=== PATIENT | female | born 2005 | race African-American/Black ===

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

== ENCOUNTER 2023-03-30 18:18 | Emergency (ER) | payer MEDICAID, OTHER ==
[~2023-03-30] VITALS: Ht 175.3 cm; Wt 68.0 kg
[2023-03-30 18:26] VITALS: O2SAT 98
[2023-03-30] MEDS ORDERED: KETOROLAC 60MG/2ML VIAL IM ONE (19:30)
[2023-03-30] MEDS ORDERED: NAPR-1176 MT (20:31)
[2023-03-30] MEDS ORDERED: KETOROLAC 60MG/2ML VIAL IM NR (21:00)
[2023-03-30 21:31] VITALS: BP 113/67
[2023-03-30 21:37] VITALS: PULSE 95; RESP 20; TEMP 98.3
== END 2023-03-30 21:38 | disposition home or self-care (01) ==
LOC: ER 18:18
DX: S99.921A Unspecified injury of right foot, initial encounter (principal); X58.XXXA Exposure to other specified factors, initial encounter; Y03.0XXA Assault by being hit or run over by motor vehicle, initial encounter; Y92.89 Other specified places as the place of occurrence of the external cause; Y99.8 Other external cause status
CPT/HCPCS: 81025; 73630; 96372; 99283; J1885; Z7610 ×2